=== PATIENT | female | born 1965 | race African-American/Black ===

== ENCOUNTER 2024-02-02 14:13 | Emergency (ER) | payer MEDICAID, OTHER ==
[~2024-02-02] VITALS: Ht 167.6 cm; Wt 80.0 kg
[~2024-02-02 14:13] MED LIST: CEPH-569; ESCI10TA
[2024-02-02 14:37] VITALS: O2SAT 98
[2024-02-02 15:52] LABS: BASOPHILS % 0.4 % (0.0-2.0); EOSINOPHILS % 1.4 % (0.0-5.0); HEMATOCRIT. 37.5 % (36.0-48.0); MEAN CORPUSCULAR VOLUME 84.3 fL (81.0-99.0); MEAN PLATELET VOLUME 7.9 fl (7.4-10.4); MONOCYTES % 6.2 % (2.0-8.0); PLATELET 439 x1000/uL (130-400); RED BLOOD CELL COUNT 4.45 mill/uL (4.2-5.4); WHITE BLOOD COUNT 10.1 x1000/uL (4.5-11.0)
[2024-02-02 15:59] LABS: CHLORIDE 107 mEq/L (98-107); POTASSIUM 3.6 mEq/L (3.5-5.1); SODIUM 140 mEq/L (136-145)
[2024-02-02 16:00] LABS: CALCIUM 9.1 mg/dL (8.7-10.4); CARBON DIOXIDE 26 mEq/L (21-32)
[2024-02-02 16:05] LABS: CREATININE 0.6 mg/dL (0.6-1.0); GLUCOSE 99 mg/dL (70-105); UREA NITROGEN BLOOD 10 mg/dL (9-23)
[2024-02-02 16:07] LABS: ALANINE AMINOTRANSFERASE < 7 IU/L (10-49); ASPARTATE AMINOTRANSFERASE 10 IU/L (<34); BILIRUBIN TOTAL 0.2 mg/dL (0.1-1.0); PROTEIN TOTAL 7.8 g/dL (6.0-8.3)
[2024-02-02 16:09] LABS: BILIRUBIN DIRECT < 0.1 mg/dL (<=3.0); TROPONIN I HIGH SENSITIVITY < 4 ng/L (3.0-34)
[2024-02-03] MEDS ORDERED: ONDANSETRON HCL 4MG/2ML INJ IV PRN (00:45)
[2024-02-03] MEDS ORDERED: IPRATROPIUM/ALBUTEROL 0.5-3(2.5)MG/3ML NEB HHN PRN (00:45)
[2024-02-03] MEDS ORDERED: ACETAMINOPHEN 325MG TABLET PO PRN ×2 (00:45)
[2024-02-03 03:50] VITALS: BP 117/40; PULSE 72; RESP 19; TEMP 36.72516; O2SAT 99
== END 2024-02-03 04:15 | disposition short-term general hospital (02) ==
LOC: ER 14:23 → EDBEDREQ 02-03 00:20 → EDBEDREQTM 02-03 03:24 → ER 02-03 04:15
DX: H54.7 Unspecified visual loss (principal); I10 Essential (primary) hypertension
CPT/HCPCS: 36415; 80048; 80076; 84484; 85025; 99285